=== PATIENT | male | born 1980 | race Caucasian/White ===

== ENCOUNTER 2023-09-04 09:12 | Day surgery (SDC) | payer OTHER ==
[2023-09-04] MEDS: Glucagon,Human Recombinant 1 MG Vial IVPUSH ONE (09:50)
[2023-09-04] MEDS: Metoclopramide 10 MG/2 ML SDV IVPUSH ONE (09:52)
[2023-09-04] MEDS: fentaNYL 100 MCG/2 ML SDV IVPUSH ONE (09:55)
[2023-09-04 09:57] LABS: BASOPHILS PERCENT AUTO 0.8 % (0.0-1.0); EOSINOPHILS PERCENT AUTO 3.5 % (0.0-6.0); HEMATOCRIT 48.5 % (42.0-52.0); HEMOGLOBIN 16.5 gm/dl (14.0-18.0); IMMATURE GRAN PERCENT AUTO 0.1 % (0.0-0.4); LYMPHOCYTES PERCENT AUTO 28.2 % (24.0-44.0); MEAN CORPUSCULAR VOLUME 85.4 fl (83.0-99.0); MEAN PLATELET VOLUME 9.1 fl (9.4-12.4); MONOCYTES PERCENT AUTO 6.8 % (0.0-8.0); NEUTROPHILS PERCENT AUTO 60.6 % (41.0-71.0); PLATELET COUNT,PLT 293 K/mm3 (150-400); RED BLOOD CELL COUNT 5.68 M/mm3 (4.52-5.90); WHITE BLOOD CELL COUNT,WBC 7.53 K/mm3 (3.9-11.3)
[2023-09-04 09:58] LABS: BASOPHILS ABSOLUTE AUTO 0.1 K/mm3 (0.0-0.2); EOSINOPHILS ABSOLUTE AUTO 0.3 K/mm3 (0.0-0.4); IMMATURE GRAN ABSOLUTE AUTO 0.01 K/mm3 (0.00-0.05); LYMPHOCYTES ABSOLUTE AUTO 2.1 K/mm3 (1.0-4.8); MONOCYTES ABSOLUTE AUTO 0.5 K/mm3 (0.0-0.8); NEUTROPHILS ABSOLUTE AUTO 4.6 K/mm3 (1.8-7.7)
[2023-09-04] MEDS: Lactated Ringers 1,000 ML IV SCH (10:00)
[2023-09-04 10:10] LABS: ALBUMIN 4.5 g/dl (3.4-5.0); BUN/CREATININE RATIO 15.4 (14-18); CALCIUM 9.1 mg/dL (8.5-10.1); CREATININE 1.3 mg/dL (0.7-1.3); EST CRCL DRUG DOSING (CG) 74.78 mL/min; PROTEIN TOTAL,TP 8.3 g/dl (6.4-8.2)
[2023-09-04 10:11] LABS: A/G RATIO 1.2 (1-2); BILIRUBIN TOTAL 0.6 mg/dL (0.2-1.0); C-REACTIVE PROTEIN 0.08 mg/dL (<0.30)
[2023-09-04] MEDS: HYDROmorphone 0.5 MG/0.5 ML Syringe IVPUSH ONE (11:03)
[2023-09-04] MEDS ORDERED: Propofol 200 MG/20 ML SDV ONE (13:57)
[2023-09-04] MEDS ORDERED: Dexamethasone 4 MG/ML SDV ONE ×2 (13:57→14:31)
[2023-09-04] MEDS ORDERED: Lidocaine 1% 4 ML ONE (13:57)
[2023-09-04] MEDS ORDERED: fentaNYL 100 MCG/2 ML SDV ONE (13:57)
[2023-09-04] MEDS ORDERED: Ondansetron 4 MG/2 ML SDV ONE (13:57)
[2023-09-04] MEDS ORDERED: Succinylcholine 200 MG/10 ML MDV ONE (13:57)
[2023-09-04] MEDS ORDERED: Midazolam 1 MG/ML 2 ML SDV ONE (13:58)
== END 2023-09-04 15:50 | disposition home or self-care (01) ==
LOC: JD.ED 09:12 → JD.SDS 14:05
PROVIDERS: ATTEND Surgery
DX: K29.50 Unspecified chronic gastritis without bleeding (principal); T18.108A Unspecified foreign body in esophagus causing other injury, initial encounter; Z79.899 Other long term (current) drug therapy; Z91.018 Allergy to other foods
CPT/HCPCS: 36415; 43239; 71045; 80053; 85025; 86140; 96361; 96374; 96375; 99285; J0330; J1100; J1170; J1610; J2250; J2405; J2704; J2765; J3010; J7120; 00731; J3490